=== PATIENT | female | born 1960 | race Caucasian/White ===

== ENCOUNTER 2019-06-05 08:00 | Outpatient (CLI) | payer BC ==
[2013-07-06 15:56] VITALS: BMI 24.0
[~2019-06-05 08:00] MED LIST: BAYER CHEWABLE81 MG PO; MULTI-DAY VITAM1 TAB PO; PERCOCET 10/3251 TA1 PO; SPRINTEC1 TAB PO; ZOFRAN4 MG PO
== END 2019-06-05 23:59 | disposition home or self-care (01) ==
LOC: D.MAMMO 08:00
PROVIDERS: ATTEND Family Medicine
DX: Z12.31 Encounter for screening mammogram for malignant neoplasm of breast (principal)

== ENCOUNTER → 2019-10-17 11:59 | Outpatient (CLI) | payer BC ==
[2013-07-06 15:56] VITALS: BMI 24.0
[2019-10-17 12:38] LABS: BASOPHILS 0.6 % (0-2); EOSINOPHILS 3.7 % (0-7); HEMATOCRIT 35.3 % (36.0-48.0); HEMOGLOBIN 11.5 g/dL (12-16); LYMPHOCYTES 34.5 % (15-50); MCH 31.6 pg (26.0-34.0); MCHC 32.6 g/dL (31.0-37.0); MEAN PLATELET VOLUME 8.6 fL (7.4-10.4); MONOCYTES 4.1 % (2-11); NEUTROPHILS 57.1 % (40-80); RBC 3.64 10x6/uL (4.00-5.40); RDW 12.1 % (11.5-14.5); WBC 5.1 10x3/uL (4.8-10.8)
[2019-10-17 12:39] LABS: PLATELET COUNT 286 10x3/uL (130-400)
== END | disposition home or self-care (01) ==
LOC: D.LAB 11:59
PROVIDERS: ATTEND Internal Medicine Pulmonary Disease
DX: J45.909 Unspecified asthma, uncomplicated (principal); R07.9 Chest pain, unspecified